=== PATIENT | female | born 1985 | race African-American/Black ===

== ENCOUNTER 2024-09-08 08:30 | Day surgery (SDC) | payer OTHER ==
[2024-09-08] MEDS: Lactated Ringers 1,000 ML IV SCH (09:29)
[2024-09-08] MEDS ORDERED: Midazolam 1 MG/ML 2 ML SDV ONE (09:41)
[2024-09-08] MEDS ORDERED: fentaNYL 100 MCG/2 ML SDV ONE (09:41)
[2024-09-08] MEDS ORDERED: Propofol 200 MG/20 ML SDV ONE (09:41)
== END 2024-09-08 12:03 | disposition home or self-care (01) ==
LOC: JP.SDS 08:30
PROVIDERS: ATTEND Surgery
DX: K62.89 Other specified diseases of anus and rectum (principal); K63.89 Other specified diseases of intestine; Z91.013 Allergy to seafood
CPT/HCPCS: 00811; 45380; 81025; 88305; J2250; J2704; J3010; J7120